=== PATIENT | female | born 1965 | race Hispanic/Latino ===

== ENCOUNTER 2019-06-05 05:38 | Day surgery (SDC) | payer BC ==
[2019-06-04 08:06] VITALS: BMI 25.4
[2019-06-05] MEDS ORDERED: ceFAZolin Sodium (SDC) 2 GM/100 ML BAG ONE (06:28)
[2019-06-05] MEDS ORDERED: Bupivacaine PF 0.5% 30 ML VIAL ONE (06:29)
[2019-06-05] MEDS ORDERED: Bacitracin Zinc Ointment 30 gm TUBE ONE (06:29)
[2019-06-05] MEDS ORDERED: Sodium Chloride 0.9% 10 ML ONE (06:30)
[2019-06-05 06:34] LABS: #Eosinphils 0.2 thou/uL (0.0-0.7); #Lymphocytes 1.9 thou/uL (1.20-3.40); #Monocytes 0.5 thou/uL (0.11-0.59); #Neutrophils 3.4 thou/uL (1.40-6.50); %Basophils 0.4 % (0.0-1.0); %Eosinophils 2.7 % (0.0-10.0); %Lymphocytes 31.7 % (21.0-51.0); %Monocytes 8.3 % (0.0-10.0); %Neutrophils 56.9 % (42.0-75.0); Hemoglobin 13.7 g/dL (12.0-16.0); Mean Corpuscular HGB CONC 34.9 g/dL (32.0-36.0); Mean Corpuscular Hemoglobin 32.5 pg (27.0-31.0); Mean Corpuscular Volume 93.2 fL (78.0-98.0); Mean Platelet Volume 6.1 fL (7.4-10.4); Platelet Count 263 thou/uL (130-400); RBC Distribution Width 11.5 % (11.5-14.5); Red Blood Cell (RBC) Count 4.21 mill/uL (4.20-5.40)
[2019-06-05] MEDS ORDERED: Midazolam HCl 2 mg/2 ml Vial ONE (07:08)
[2019-06-05] MEDS ORDERED: Fentanyl 100 MCG/2 ML VIAL ONE (07:08)
--- NOTE | 2019-06-05 10:48 | RAD ---
LEFT MIDDLE FINGER 2 VIEWS: HISTORY: Joint repair. FINDINGS: These are C-arm films which show what appears to be some deformity to the distal aspect of the proxim al phalanx of the ring finger. Difficult to appreciate the exact abnormality on these C-arm projecti ons. IMPRESSION: Proximal interphalangeal joint repair. POS: [facility]
[2019-06-05] MEDS ORDERED: ePHEDrine 50 MG/ML VIAL ONE (13:49)
[2019-06-05] MEDS ORDERED: Lidocaine 1% PF 5 ML VIAL ONE (13:49)
[2019-06-05] MEDS ORDERED: PROPOFOL 200 MG/20 ML VIAL ONE (13:49)
--- NOTE | 2019-06-05 15:42 | OP ---
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 PROCEDURES PERFORMED: 1. Collateral reconstruction, radial aspect. 2. Proximal interphalangeal joint total joint arthroplasty with Epstein Jud Hickman size 1 implant. FINDINGS: Severe osteoarthritis with nearly 100% loss of chondral surface on the proximal phalanx aspect of the joint and a marked chondral loss almost 50% with sclerosis and osteophytes on the base of the middle phalanx. TOURNIQUET TIME: 81 minutes. BLOOD LOSS: 50 mL. DESCRIPTION OF PROCEDURE: After successful general endotracheal anesthesia, limb prepped and draped. We then outlined the incision, which was a zigzag incision over the proximal interphalangeal joint. After doing a time-out, identified the left middle finger proximal interphalangeal joint as the site of arthritis and the site that matched the consent as well, history and physical, and the prepped area. We then injected with 10 mL of 0.5% Marcaine at metacarpophalangeal joint level. We will do the same after the skin was closed for a total of 20 mL injection. The patient then had the incision carried through skin and subcutaneous tissue, dissected a large subcutaneous flap to expose the cyst mechanism. Z-plasty made an extensor mechanism to open it and now we were able to shotgun the joint. It appeared to have very tight ulnar collateral and the radial collateral was almost completely attenuated. We released all the collateral and then the radial collateral would undergo a [id number]-[id number]-sdds reconstruction. It was then able to be placed back into the bone tunnel. The patient then had a box cut made completely removing the chondral surface in frontal sagittal plane and confirmed this on radiographs. We then removed the palmar and dorsal surface of the extensor, on the base of the middle phalanx, used curette and osteotomes to remove what was approximately 50% loss of chondral surface on the base of the middle phalanx and almost 85% loss at the head of the proximal phalanx. We now had established adequate cut space of over 4 mm. We began with successive reamers, first with a broach and C-arm confirmed starter broach was in excellent position both distally and proximally in the frontal and sagittal plane. We then proceeded with the 2P and 2D and at this point, we sized the patient and #1 had excellent. #2 size was too tight and could not achieve full extension. We then prepared the canal, placed the primary #2 Jud Hickman permanent implant inside and had excellent stability. We tightened the collaterals on the radial side to restore a neutral frontal plane angulation as before preoperative, the patient had 30 degrees apex radial angulation. This balance was restored via reconstruction back to bone. It was tied with a 4-0 Prolene once the prosthesis was placed in place. The patient then had full 120 degrees range of motion without prosthesis dislodging and full extension, which we took radiographs up to confirm. C-arm was released from this case. We released the tourniquet obtained hemostasis. We closed the extensor mechanism at the 2 of the Z with interrupted [id number]-ij-smylt 4-0 Prolene and the longitudinal limb was closed with a running 4-0 Prolene, all tied in a buried suture technique. We then closed the skin after obtaining full hemostasis here with interrupted 4-0 nylon simple pattern. Bulky dressing was applied with palmar splint at 0 degrees extension PIP joint, at 60 at the MP joint. She left the operating room without evidence of anesthetic or operative complication. Job ID: [id number]
--- NOTE | 2019-06-08 08:58 | EKG ---
Test Reason : PREOP Blood Pressure : / mmHG Vent. Rate : 061 BPM Atrial Rate : 061 BPM P-R Int : 146 ms QRS Dur : 102 ms QT Int : 468 ms P-R-T Axes : 052 064 036 degrees QTc Int : 471 ms Normal sinus rhythm T wave abnormality, consider anterior ischemia Prolonged QT Abnormal ECG When compared with ECG of 09-AUG-2015 09:03, Incomplete right bundle branch block is no longer Present Minimal criteria for Anterior infarct are no longer Present Confirmed by DR. Pérez HUNTER ([id number]) on 06/08/2019 8:57:26 AM Referred By: MARNI Confirmed By:DR. Pérez HUNTER
== END 2019-06-05 11:30 | disposition home or self-care (01) ==
LOC: SDC 05:38
PROVIDERS: ATTEND Orthopaedic Surgery Hand Surgery
PROC: 0MQ80ZZ Repair Left Hand Bursa and Ligament, Open Approach (ICD-10-PCS; principal; 2019-06-05)
PROC: 0RQR0ZZ Repair Left Carpal Joint, Open Approach (ICD-10-PCS; principal; 2019-06-05)
DX: M19.042 Primary osteoarthritis, left hand (principal); M25.342 Other instability, left hand; Z88.8 Allergy status to other drugs, medicaments and biological substances
CPT/HCPCS: 76000; 85025; 93005; 93010; C1776; J0690; J2250; J3010; J3490; S0020

== ENCOUNTER 2019-09-18 09:40 | Day surgery (SDC) | payer BC ==
[2019-09-17 10:54] VITALS: BMI 26.4
[2019-09-18] MEDS ORDERED: Ondansetron PF 4 MG/2 ML Vial ONE (09:56)
[2019-09-18] MEDS ORDERED: ePHEDrine/0.9% NaCl/PF SYRINGE 50 mg/10 ml ONE (09:56)
[2019-09-18] MEDS ORDERED: PHENYLEPHRINE-NS 100 MCG/ML 10 ML SYRINGE ONE (09:56)
[2019-09-18] MEDS ORDERED: PROPOFOL 200 MG/20 ML VIAL ONE (09:56)
[2019-09-18] MEDS ORDERED: Lidocaine 1% PF 5 ML VIAL ONE (09:56)
[2019-09-18] MEDS ORDERED: Dexamethasone 20 MG/5 ML VIAL ONE (09:56)
[2019-09-18 11:59] LABS: Bacteria/HPF None Seen HPF (None Seen); Bilirubin Negative (Negative); Blood, Urine Negative (Negative); Clarity Clear (Clear); Glucose, Urine (Dipstick) Normal (Negative); Leukocyte Negative Leu/uL (Negative); Nitrite Negative (Negative); Protein, Urine (Dipstick) Negative (Neg-Trace); Squamous Epithelial 0-3 HPF (0-3); Urobilinogen Normal mg/dL (Less than 2); WBC/HPF 0-3 HPF (0-3)
[2019-09-18 12:00] LABS: #Eosinphils 0.3 thou/uL (0.0-0.7); #Lymphocytes 2.4 thou/uL (1.20-3.40); #Monocytes 0.4 thou/uL (0.11-0.59); #Neutrophils 3.6 thou/uL (1.40-6.50); %Basophils 0.6 % (0.0-1.0); %Lymphocytes 35.7 % (21.0-51.0); %Monocytes 6.5 % (0.0-10.0); %Neutrophils 53.3 % (42.0-75.0); Hemoglobin 13.5 g/dL (12.0-16.0); Mean Corpuscular HGB CONC 34.5 g/dL (32.0-36.0); Mean Corpuscular Hemoglobin 31.9 pg (27.0-31.0); Mean Corpuscular Volume 92.4 fL (78.0-98.0); Mean Platelet Volume 6.3 fL (7.4-10.4); Platelet Count 250 thou/uL (130-400); Red Blood Cell (RBC) Count 4.24 mill/uL (4.20-5.40); White Blood Cell (WBC) Count 6.8 thou/uL (4.8-10.8)
[2019-09-18 12:14] LABS: Anion Gap 11 mmol/L (10-20); BUN (Urea Nitrogen) 15 mg/dL (9.8-20.1); Calc. Creatinine Clearance 95 mL/min (70-130); Calcium 9.1 mg/dL (7.8-10.44); Carbon Dioxide 27 mmol/L (22-29); Chloride 107 mmol/L (98-107); Estimated GFR-MDRD Greater than 90; Glucose 96 mg/dL (70-105); Potassium 3.9 mmol/L (3.5-5.1); Sodium 141 mmol/L (136-145)
[2019-09-18] MEDS ORDERED: Bacitracin Zinc Ointment 30 gm TUBE ONE (12:58)
[2019-09-18] MEDS ORDERED: Betamet Acet/Betamet Na Ph 30 MG/5 ML VIAL ONE (12:58)
[2019-09-18] MEDS ORDERED: Sodium Chloride 0.9% 10 ML ONE (12:58)
[2019-09-18] MEDS ORDERED: Bupivacaine PF 0.5% 30 ML VIAL ONE (12:58)
[2019-09-18] MEDS ORDERED: Tobramycin Sulfate 1.2 GM VIAL ONE (12:58)
[2019-09-18] MEDS ORDERED: Sodium Chloride 0.9% 20 ML ONE (13:02)
[2019-09-18] MEDS ORDERED: Midazolam HCl 2 mg/2 ml Vial ONE (13:05)
[2019-09-18] MEDS ORDERED: Vancomycin HCl 1 GM in Premix Bag 1 BAG IVPB SCH (16:00)
--- NOTE | 2019-09-21 13:27 | OP ---
DATE OF PROCEDURE: 09/18/2019 PREOPERATIVE DIAGNOSIS: Possible deep wound infection around total joint prosthesis, PIP joint, left middle finger. POSTOPERATIVE DIAGNOSIS: Possible deep wound infection around total joint prosthesis, PIP joint, left middle finger. FINDINGS: Subcutaneous friable post antibiotic necrotic tissue with small defect in extensor mechanism near the joint. No evidence of gross osteomyelitis, however, with possible joint infection only. PROCEDURES PERFORMED: 1. Culture of the wound. 2. Debridement of joint. 3. Removal of proximal phalangeal joint with Epstein Jud [place] implant. 4. Extensor tendon tenotomy. INDICATIONS FOR PROCEDURE: The patient is now approximately three months since total joint arthroplasty and developed persistent lack of full flexion (less than 90 degrees) at the PIP joint of the left middle finger. We were scheduled to perform tenolysis, possible revision, but she developed infection and then noticed drainage, and was treated with antibiotics. Operation was undertaken earlier than anticipated initially in order to evaluate for infection proximal to debride her and then set her up for second stage joint arthroplasty in a short period of time. There was negative cultures. DESCRIPTION OF PROCEDURE: After successful general endotracheal anesthesia, the limb was prepped and draped. Time-out was done appropriately. The previous incision was then carried through skin and subcutaneous tissue until we reach the second mechanism. This was adhered to skin and then on underlying cortical bone, so we performed tenolysis in order to visualize whether there was infection. We had to reopen the repaired extensor mechanism. This was done using the same Z-shaped approach. In the center of the transverse limb of the Z-shape distal portion, there was some friable tissue that was greyish brown in the center of the tendon that was [id number]-[id number] injury, so this portion of the tendon had to be resected and images are matched . We then had about a 2 mm linear defect and then we were able to lift up the ends, removed the prosthesis, curetted the bone and then took sample for evaluation. The friable tissue as well as the joint itself did not grow any bacteria and negative Gram stain but because of the fear that was infected, we decided to place an antibiotic cement with tobramycin inside, making it to shape and near to good size match as the proximal interphalangeal joint, and we were able to secure this with antibiotics inside. We released the tourniquet, closed the mechanism slightly elongated by 0.5 mm both distally and proximally as part of re-establishment of the L-shaped supports. The patient then left the operating room without evidence of anesthetic complication. Job ID: [id number]
== END 2019-09-18 19:00 | disposition home or self-care (01) ==
LOC: SDC 09:40
PROVIDERS: ATTEND Orthopaedic Surgery Hand Surgery
DX: T81.41XA Infection following a procedure, superficial incisional surgical site, initial encounter (principal); L08.9 Local infection of the skin and subcutaneous tissue, unspecified; M24.542 Contracture, left hand; G90.50 Complex regional pain syndrome I, unspecified; M19.042 Primary osteoarthritis, left hand; F17.210 Nicotine dependence, cigarettes, uncomplicated; Z88.8 Allergy status to other drugs, medicaments and biological substances
CPT/HCPCS: 80048; 81001; 85025; 85652; 87070; 87205; 88305; 88331; C1713; J0690; J0702; J1100; J2001; J2250; J2405; J2704; J3260; J3370; J3490; S0020

== ENCOUNTER 2019-10-16 08:25 | Day surgery (SDC) | payer BC ==
[2019-10-15 09:13] VITALS: BMI 27.3
[2019-10-16 09:53] LABS: #Eosinphils 0.2 thou/uL (0.0-0.7); #Lymphocytes 1.9 thou/uL (1.20-3.40); #Monocytes 0.3 thou/uL (0.11-0.59); #Neutrophils 2.1 thou/uL (1.40-6.50); %Basophils 0.8 % (0.0-1.0); %Eosinophils 3.6 % (0.0-10.0); %Lymphocytes 41.9 % (21.0-51.0); %Monocytes 7.4 % (0.0-10.0); %Neutrophils 46.2 % (42.0-75.0); Hemoglobin 13.1 g/dL (12.0-16.0); Mean Corpuscular Hemoglobin 32.1 pg (27.0-31.0); Mean Corpuscular Volume 91.6 fL (78.0-98.0); Mean Platelet Volume 6.3 fL (7.4-10.4); Platelet Count 246 thou/uL (130-400); RBC Distribution Width 11.7 % (11.5-14.5); White Blood Cell (WBC) Count 4.5 thou/uL (4.8-10.8)
[2019-10-16] MEDS ORDERED: ePHEDrine/0.9% NaCl/PF SYRINGE 50 mg/10 ml ONE (10:11)
[2019-10-16] MEDS ORDERED: Ondansetron PF 4 MG/2 ML Vial ONE (10:11)
[2019-10-16] MEDS ORDERED: Lidocaine 1% PF 5 ML VIAL ONE (10:11)
[2019-10-16] MEDS ORDERED: PROPOFOL 200 MG/20 ML VIAL ONE (10:11)
[2019-10-16] MEDS ORDERED: Dexamethasone 20 MG/5 ML VIAL ONE (10:11)
[2019-10-16] MEDS ORDERED: Bacitracin Zinc Ointment 30 gm TUBE ONE (11:02)
[2019-10-16] MEDS ORDERED: Bupivacaine PF 0.5% 30 ML VIAL ONE (11:02)
[2019-10-16] MEDS ORDERED: Sodium Chloride 0.9% 10 ML ONE (11:02)
[2019-10-16] MEDS ORDERED: Fentanyl 100 MCG/2 ML VIAL ONE (12:02)
[2019-10-16] MEDS ORDERED: Betamet Acet/Betamet Na Ph 30 MG/5 ML VIAL ONE ×2 (13:40→14:18)
--- NOTE | 2019-10-19 11:14 | OP ---
DATE OF PROCEDURE: 10/16/2019 PREOPERATIVE DIAGNOSES: 1. Extensor adhesions. 2. Skin adhesions. 3. Joint contracture. 4. Previously low-grade infection around proximal phalangeal joint, total joint arthroplasty with indwelling biodeliverable, nonabsorbable tobramycin beads in the form of a stem. POSTOPERATIVE DIAGNOSES AND FINDINGS: 1. Extensor adhesions. 2. Skin adhesions. 3. Joint contracture. 4. Previously low-grade infection around proximal phalangeal joint, total joint arthroplasty with indwelling biodeliverable nonabsorbable tobramycin beads in the form of a stem. 5. No gross infection found, but marked adhesions of the skin to tendon, tendon to bone, and joint contracture. PROCEDURES PERFORMED: 1. Arthrotomy with synovectomy and joint release. 2. Collateral ligament repair, ulnar collateral ligament of the middle finger, PIP joint. 3. Removal, non-biodegradable drug delivery system (antibiotic bead and formation of stem). 4. Extensor tenolysis. 5. Extensor tendon repair with lengthening Z-plasty technique. 6. Implantation of #2 Epstein Jud [place], proximal phalangeal joint. COMPLICATIONS: None. TOURNIQUET TIME: 74 minutes. INDICATIONS: The patient returned for staged wound management after previous low-grade infection, which proved to be superficial, but because of the fact there was a total joint, we underwent previous debridement and now, we are here for second-stage exchange to prosthesis. No gross infection at this time and no evidence of white blood cell count abnormality. The patient's white blood cell count at the time of surgery was 4.5. DESCRIPTION OF PROCEDURE: After successful general endotracheal anesthesia, the limb was prepped and draped. We gave 10 mL of 0.5% Marcaine to augment the general anesthesia prior to the procedure and then 10 more at the metacarpophalangeal joint block level once the incision was closed. We carried the incision through skin and subcutaneous tissue and immediately we could see the marked adhesions between the skin and the tendon, and tendon to bone. We then did a careful tenolysis first freeing the skin with a [place] blade from the tendon and then the tendon from the bone. Once this was done, there was some marked scar tissue underneath the tendon, which we excised fully and we created a Z-opening for later lengthening by 2 mm. We then released the radial ulnar intrinsics proximally over the proximal phalanx, and we were able then to easily flex the joint. Via arthrotomy, visualized the joint, saw the collateral ligament was loose on the ulnar side, and placed a 2-0 Prolene in a [place] type stitch for later repair. We then finished debridement, irrigated the canals, curetted the canals, there was no gross infection. We used 2 L of normal saline on a syringe pressure to get inside the canals. Once this was done, we then curetted the bone at the interface of the canal and prosthesis before doing our final sizing. We were able to size that to a 2 using the standard broaches from the [facility], set in place a trial prosthesis in appropriate position. We drilled a K-wire to reattach the ulnar and collateral ligament with a heavy Prolene, and the hole was made in nearly anatomic position and we were able to have correct frontal plane alignment. With the trial in place, we could extend to 0 and with the , we could flex to 120 degrees. There was a mild amount of radial deviation because of the collateral ligament. Once we had tighten this, this was corrected. We then placed Celestone into the tendon when the tenolysis was done, we brought out the final prosthesis and soaked for 2 minutes and [address] it in appropriate orientation and we were able to flex to 110 degrees. We then used a Z-lengthened method with Prolene in cjhurm-go-dvorw sutures to close the extensor defect and with the small Z-length, we could flex easily to 100 degrees without spring back. Tourniquet was deflated. Hemostasis was obtained. Wound was then irrigated, and we closed the skin after 2 application of Celestone, one between bone and tendon, one between tendon and skin using interrupted 4-0 nylon in a simple pattern. The patient then had the bacitracin, Adaptic, 4x4, and Kerlix dressing applied, a splint in neutral position for the long and middle and index finger and the patient then left the operating room without evidence of anesthetic or operative complication. Job ID: [id number]
== END 2019-10-16 16:00 | disposition home or self-care (01) ==
LOC: EEVIPCON 08:25 → SDC 08:25
PROVIDERS: ATTEND Orthopaedic Surgery Hand Surgery
PROC: 0MQ80ZZ Repair Left Hand Bursa and Ligament, Open Approach (ICD-10-PCS; principal; 2019-10-16)
PROC: 0LQ80ZZ Repair Left Hand Tendon, Open Approach (ICD-10-PCS; principal; 2019-10-16)
PROC: [UNRECOGNIZED PROCEDURE] (principal; 2019-10-16)
DX: T84.59XA Infection and inflammatory reaction due to other internal joint prosthesis, initial encounter (principal); M19.042 Primary osteoarthritis, left hand; M24.542 Contracture, left hand; F41.9 Anxiety disorder, unspecified; F32.9 Major depressive disorder, single episode, unspecified; F17.210 Nicotine dependence, cigarettes, uncomplicated; Z88.8 Allergy status to other drugs, medicaments and biological substances
CPT/HCPCS: 36415; 85025; C1776; J0690; J0702; J1100; J2001; J2405; J2704; J3010; J3490; S0020